=== PATIENT | male | born 1975 ===

== ENCOUNTER 2017-06-12 14:56 | Emergency (ER) | payer OTHER ==
[2017-06-12 15:06] VITALS: BP 116/78; PULSE 81; RESP 16; TEMP 98.1; O2SAT 95
[2017-06-12] MEDS ORDERED: Levalbuterol 1.25 MG/3 ML Inhal Soln UD IH STA (15:41)
--- NOTE | 2017-06-12 16:55 | ED PDOC ---
Arrival/HPI - General Chief Complaint: Flu-like Symptoms Time Seen by Provider: 06/12/17 15:04 Historian: Patient - History of Present Illness Narrative History of Present Illness (Text): 06/12/17 18:34 41yr old male presents today with 2-3 day history of cough, nasal congestion, sore throat and subjective fevers. pt denies cp or sob. denies sick contacts. pt states he didnt get his flu shot this year. denies abdominal pain. pt states he had nausea on thursday and vomiting on thursday. pt denies vomiting today. no other complaints. Symptom Onset: Gradual Past Medical History - Provider Review Nursing Documentation Reviewed: Yes - Travel History Have you recently traveled outside [place] w/in the past 3 mons?: No - Tetanus Immunization Tetanus Immunization: Unknown - Psychiatric Hx Psychophysiologic Disorder: No Hx Substance Use: Yes (CANNABIS) Family/Social History - Physician Review Nursing Documentation Reviewed: Yes Family/Social History: Unknown Family HX Smoking Status: Never Smoked Hx Alcohol Use: Yes Frequency of alcohol use: Socially Hx Substance Use: Yes (CANNABIS) Allergies/Home Meds Allergies/Adverse Reactions: Allergies No Known Allergies Allergy (Verified 06/12/17 15:02) Review of Systems - Review of Systems Constitutional: Fatigue, Fevers Respiratory: Cough. absent: SOB Cardiovascular: absent: Chest Pain, Palpitations Gastrointestinal: Nausea, Vomiting. absent: Abdominal Pain, Constipation, Diarrhea Genitourinary Male: absent: Dysuria, Frequency, Hematuria Musculoskeletal: absent: Arthralgias, Back Pain, Neck Pain Skin: absent: Rash, Pruritis Neurological: Headache. absent: Dizziness Psychiatric: absent: Anxiety, Depression, Suicidal Ideation Physical Exam Vital Signs Reviewed: Yes Vital Signs Temp Pulse Resp BP Pulse Ox 06/12/17 15:05 98.1 F 81 16 116/78 95 Temperature: Afebrile Blood Pressure: Normal Pulse: Regular Respiratory Rate: Normal Appearance: Positive for: Well-Appearing, Non-Toxic, Comfortable Pain Distress: None Mental Status: Positive for: Alert and Oriented X 3 - Systems Exam Head: Present: Atraumatic Mouth: Present: Moist Mucous Membranes Neck: Present: Normal Range of Motion Respiratory/Chest: Present: Good Air Exchange, Rhonchi. No: Clear to Auscultation, Respiratory Distress, Accessory Muscle Use, Tachypneic Cardiovascular: Present: Regular Rate and Rhythm Abdomen: No: Tenderness, Distention, Rebound, Guarding Upper Extremity: Present: Normal ROM Lower Extremity: Present: Normal ROM Neurological: Present: GCS=15, Speech Normal Skin: Present: Warm, Dry, Normal Color. No: Rashes Psychiatric: Present: Alert, Oriented x 3 Medical Decision Making ED Course and Treatment: 06/12/17 18:44 Patient is nontoxic well-appearing in no distress. Vital signs are stable. tylenol po cxr; no infiltrate; no effusion pt given xopenex; pt reassessment; lungs cta bilaterally; no rhonchi, no wheezing. pt states he feels much better. rapid flu negative based on patients symptoms: will start tamiflu po tamiflu given pO I advised follow up with primary care physician within the next 2 days. I advised increase fluids and return if symptoms worsen persist or if new symptoms develop. Patient verbalizes understanding of discharge instructions and need for immediate followup. all aspects of this case were discussed the attending of record. IMPRESSION; influenza Motrin one tablet every 6 hours as needed for pain tamiflu; 1 tablet twice daily x 5 days albuterol; 2 puffs every 4-6 hours as needed for cough. Increase fluids Followup with primary care physician the next 2 days Return if symptoms worsen persist or if new symptoms develop - Lab Interpretations Lab Results: Lab Results 06/12/17 15:30: Influenza Typ A,B (EIA) Negative for flu a/b - RAD Interpretation Radiology Orders: 06/12/17 15:41 CHEST TWO VIEWS (PA/LAT) [RAD] Stat - Medication Orders Current Medication Orders: Discontinued Medications Acetaminophen (Tylenol 325mg Tab) 975 mg PO STAT STA Stop: 06/12/17 15:27 Last Admin: 06/12/17 15:28 Dose: 975 mg Levalbuterol HCl (Xopenex) 1.25 mg IH STAT STA Stop: 06/12/17 15:42 Last Admin: 06/12/17 15:53 Dose: 1.25 mg Oseltamivir Phosphate (Tamiflu Cap) 75 mg PO STAT STA PRN Reason: Protocol Stop: 06/12/17 16:17 Last Admin: 06/12/17 16:28 Dose: 75 mg Disposition/Present on Arrival - Present on Arrival Any Indicators Present on Arrival: No History of DVT/PE: No History of Uncontrolled Diabetes: No Urinary Catheter: No History of Decub. Ulcer: No History Surgical Site Infection Following: None - Disposition Have Diagnosis and Disposition been Completed?: Yes Diagnosis: Influenza Disposition: HOME/ ROUTINE Disposition Time: 16:54 Patient Plan: Discharge Condition: GOOD Discharge Instructions (ExitCare): Influenza (ED) Additional Instructions: Motrin one tablet every 6 hours as needed for pain tamiflu; 1 tablet twice daily x 5 days albuterol; 2 puffs every 4-6 hours as needed for cough. Increase fluids Followup with primary care physician the next 2 days Return if symptoms worsen persist or if new symptoms develop Prescriptions: Albuterol HFA [Ventolin HFA 90 mcg/actuation (8 g)] 2 puff IH [id number] PRN #1 inhaler PRN Reason: Cough Ibuprofen [Motrin] 600 mg PO Q6H PRN #20 tab PRN Reason: pain/fever reduction Oseltamivir [Tamiflu] 75 mg PO BID #10 cap Referrals: [facility] at [facility] [place] [Outside] - Follow up with primary Robbin Ardon MD [Staff Provider] - Follow up with primary Forms: [employer] ([place]), WORK NOTE
--- NOTE | 2017-06-12 17:19 | RAD ---
HISTORY: Cough, fever. COMPARISON: No prior. TECHNIQUE: Chest PA and lateral FINDINGS: LUNGS: No active pulmonary disease. PLEURA: No significant pleural effusion identified. No pneumothorax apparent. CARDIOVASCULAR: Normal. OSSEOUS STRUCTURES: No significant abnormalities. VISUALIZED UPPER ABDOMEN: Normal. OTHER FINDINGS: None. IMPRESSION: No active disease.
== END 2017-06-12 17:17 | disposition home or self-care (01) ==
LOC: ED 14:56
DX: J11.1 Influenza due to unidentified influenza virus with other respiratory manifestations (principal)